=== PATIENT | female | born 1975 | race Caucasian/White ===

== ENCOUNTER 2017-08-18 23:04 | Emergency (ER) | payer MEDICAID ==
[2017-08-18] MEDS ORDERED: LORazepam 1 MG Tab PO ONE (23:40)
--- NOTE | 2017-08-18 23:44 | EDM.PDOC ---
ED HPI GENERAL MEDICAL PROBLEM - General Chief Complaint: General Stated Complaint: VOMITING Time Seen by Provider: 08/18/17 23:33 Source of Information: Reports: Patient, Provider, RN Notes Reviewed History Limitations: Reports: No Limitations - History of Present Illness INITIAL COMMENTS - FREE TEXT/NARRATIVE: 42-year-old female presents emergency department today with concern about a lab draw, she recently had blood work done earlier today by one of the local clinics was reported potassium around 2.6 and a sodium of less than 110 she recently had blood work done about a month ago was within normal limits, she does admit to being very anxious she has had some emesis of sputum but does not feel nauseated she is visibly trembling - Related Data Allergies Allergy/AdvReac Type Severity Reaction Status Date / Time morphine Allergy Itching Verified 08/18/17 23:21 Past Medical History Psychiatric History: Reports: Anxiety - Past Surgical History Other Cardiovascular Surgeries/Procedures: MITRAL AND TRICUSPID VALVE FAILURE GI Surgical History: Reports: Cholecystectomy Other GI Surgeries/Procedures: UMBILICAL HERNIA Female Surgical History: Reports: Section Other Musculoskeletal Surgeries/Procedures:: L ACL REPLACEMENT, BUNIONECTOMY BILAT FEET Social & Family History - Tobacco Use Smoking Status *Q: Unknown Ever Smoked ED ROS GENERAL - Review of Systems Review Of Systems: See Below Constitutional: Reports: No Symptoms HEENT: Reports: No Symptoms Respiratory: Reports: No Symptoms Cardiovascular: Reports: No Symptoms GI/Abdominal: Reports: Nausea : Reports: No Symptoms Musculoskeletal: Reports: No Symptoms Skin: Reports: No Symptoms Neurological: Reports: No Symptoms Psychiatric: Reports: Anxiety ED EXAM, GENERAL - Physical Exam Exam: See Below Free Text/Narrative:: General: Female visibly anxious, trembling, alert and oriented x3 HEENT: head is atraumatic normocephalic, eyes pupils equal round reactive to light, sclera clear no conjunctivitis appreciated. Ears tympanic membranes clear and pittman landmarks and light reflex are present bilaterally canals are clear. Nose no septal deviation, nares are clear, no blood present. Mouth mucosa is moist and pink no erythema or exudate noted in soft palate, tongue is midline uvula is midline, dentition is intact. Neck: Supple no thyromegaly no tracheal deviation. Nodes: Cervical nodes subclavicular nodes nontender no palpable lymphadenopathy noted. Lungs: clear to auscultation bilaterally with symmetrical respirations, no adventitious noise appreciated. CV: Regular rate and rhythm S1 and S2 appreciated no murmurs rubs or gallops noted. Abdomen: Soft, nontender, no palpable masses or organomegaly appreciated, no distention no guarding bowel sounds are present . Neuro: Cranial nerves II through XII grossly intact Skin: Warm and dry, intact Extremities: No lower extremity edema appreciated, pedal pulse is +2. Course - Vital Signs Last Recorded V/S: Last Vital Signs Temp 97.7 F 08/18/17 23:18 Pulse 98 08/18/17 23:18 Resp 14 08/18/17 23:18 BP 111/72 08/18/17 23:18 Pulse Ox 96 08/18/17 23:18 - Orders/Labs/Meds Orders: Active Orders 24 hr Category Date Time Status EKG Documentation Completion [RC] ASDIRECTED Care 08/18/17 23:41 Active Potassium Chloride [KCL 20 MEQ in Water 100 ML] 20 meq Med 08/19/17 00:30 Ordered Premix Bag 1 bag IV ONETIME Sodium Chloride 3% 500 ml Med 08/19/17 00:30 Ordered IV ASDIRECTED EKG 12 Lead [EK] Stat Ther 08/18/17 23:41 Ordered Medication Orders Potassium Chloride 20 meq/ (Premix) 100 mls @ 50 mls/hr IV ONETIME ONE Stop: 08/19/17 02:29 Last Admin: 08/19/17 00:43 Dose: 50 mls/hr Sodium Chloride (Sodium Chloride 3%) 500 mls @ 25 mls/hr IV ASDIRECTED APOLINAR Last Admin: 08/19/17 00:43 Dose: 25 mls/hr Labs: Laboratory Tests 08/18/17 08/18/17 Range/Units 23:45 23:45 WBC 11.5 H (4.5-11.0) K/uL RBC 3.56 (3.30-5.50) M/uL Hgb 12.3 (12.0-15.0) g/dL Hct 32.1 L (36.0-48.0) % MCV 90 (80-98) fL MCH 35 H (27-31) pg MCHC 38 H (32-36) % Plt Count 223 (150-400) K/uL Neut % (Auto) 61 (36-66) % Lymph % (Auto) 24 (24-44) % Vermilion % (Auto) 14 H (2-6) % Eos % (Auto) 1 L (2-4) % Baso % (Auto) 0 (0-1) % Sodium 109 L* (140-148) mmol/L Potassium 2.2 L* (3.6-5.2) mmol/L Chloride 71 L (100-108) mmol/L Carbon Dioxide 27 (21-32) mmol/L Anion Gap 13.2 (5.0-14.0) mmol/L BUN 5 L (7-18) mg/dL Creatinine 0.9 (0.6-1.0) mg/dL Est Cr Clr Drug Dosing 68.05 mL/min Estimated GFR (MDRD) > 60 (>60) Glucose 112 H (74-106) mg/dL Calcium 8.4 L (8.5-10.1) mg/dL Total Bilirubin 1.5 H (0.2-1.0) mg/dL AST 126 H (15-37) U/L ALT 76 (12-78) U/L Alkaline Phosphatase 241 H (46-116) U/L Total Protein 7.3 (6.4-8.2) g/dL Albumin 3.5 (3.4-5.0) g/dL Globulin 3.8 H (2.3-3.5) g/dL Albumin/Globulin Ratio 0.9 L (1.2-2.2) Meds: Medications Generic Name Dose Route Start Last Admin Trade Name Freq PRN Reason Stop Dose Admin Potassium Chloride 20 meq/ 100 mls @ 50 mls/hr 08/19/17 00:30 08/19/17 00:43 Premix IV 08/19/17 02:29 50 mls/hr ONETIME ONE Administration Sodium Chloride 500 mls @ 25 mls/hr 08/19/17 00:30 08/19/17 00:43 Sodium Chloride 3% IV 25 mls/hr ASDIRECTED APOLINAR Administration Discontinued Medications Generic Name Dose Route Start Last Admin Trade Name Freq PRN Reason Stop Dose Admin Lorazepam 1 mg 08/18/17 23:40 08/18/17 23:47 Ativan PO 08/18/17 23:41 1 mg ONETIME ONE Administration Departure - Departure Time of Disposition: 00:50 Disposition: DC/Tfer to Acute Hospital 02 Condition: Good Clinical Impression: Hyponatremia, Hypokalemia - Discharge Information Referrals: Kim Pittman, [employer] [Primary Care Provider] - Forms: ED Department Discharge - My Orders Last 24 Hours: My Active Orders 08/18/17 23:41 EKG Documentation Completion [RC] ASDIRECTED EKG 12 Lead [EK] Stat 08/19/17 00:30 Potassium Chloride [KCL 20 MEQ in Water 100 ML] 20 meq Premix Bag 1 bag IV ONETIME Sodium Chloride 3% 500 ml IV ASDIRECTED - Assessment/Plan Last 24 Hours: My Active Orders 08/18/17 23:41 EKG Documentation Completion [RC] ASDIRECTED EKG 12 Lead [EK] Stat 08/19/17 00:30 Potassium Chloride [KCL 20 MEQ in Water 100 ML] 20 meq Premix Bag 1 bag IV ONETIME Sodium Chloride 3% 500 ml IV ASDIRECTED Plan: Assessment Acuity = acute Site and laterality = hyponatremia and hypokalemia complicated patient with known history of mitral valve and tricuspid failure leading to heart failure Etiology = probable relationship to increase in Lasix dose 3 weeks ago Manifestations = none Location of injury = Home Lab values = WBC elevated at 11.5 consistent leukocytosis, sodium low at 109 consistent with severe hyponatremia potassium low at 2.2 consistent with severe hypokalemia total bilirubin elevated at 1.5 consistent hyperbilirubinemia AST elevated 126 consistent elevated liver enzymes EKG demonstrates a sinus rhythm there is no ST elevations or depressions no arrhythmias noted Plan Called discussed case with Dr. Bender hospitalist on-call [facility] kindly accepted the patient in transfer as we have no beds currently. She was given 1 mg Ativan by mouth, started 3% sodium at 25 mL an hour and started 20 mEq of potassium dose IV she'll be transported via EMS ground Patient was in agreement with the plan all questions were answered. This note was dictated using Elevate voice recognition software please call with any questions.
[2017-08-19] MEDS ORDERED: Sodium Chloride 3% 500 ML IV SCH (00:30)
[2017-08-19] MEDS ORDERED: Potassium Chloride 20 MEQ in Premix Bag 1 BAG IV ONE (00:30)
== END 2017-08-19 01:30 ==
LOC: JP.ED 23:04
DX: E87.1 Hypo-osmolality and hyponatremia (principal); E87.6 Hypokalemia; Z88.5 Allergy status to narcotic agent
CPT/HCPCS: 36415; 80053; 85025; 93005; 96360; 99285; A9270; J3480; 93010; 99284; J7131